=== PATIENT | female | born 1960 | race Caucasian/White ===

== ENCOUNTER 2021-03-08 22:26 | Emergency (ER) | payer BC, OTHER ==
[~2021-03-08] VITALS: Ht 167.6 cm; Wt 105.9 kg
[~2021-03-08 22:26] MED LIST: RIVA15TA PO; RIVA20TA PO
[2021-03-09] MEDS: oxyCODONE/APAP 5-325mg tablet PO ONE (00:27)
[2021-03-09] MEDS: LIDOcaine Viscous 15ml cup MM ONE (00:28)
[2021-03-09] MEDS: normal saline 1000ml 1,000 ML IV ONE (01:24)
[2021-03-09] MEDS: ampicillin/sulbac 3gm/NS 100ml 100 ML IV ONE (01:24)
[2021-03-09 01:35] LABS: BASOPHILS # (AUTO) 0.1 X10'3 (0-0.2); BASOPHILS % (AUTO) 0.9 % (0-1); EOSINOPHILS % (AUTO) 0.1 % (0-6); HEMATOCRIT 40.3 % (35.0-45.0); HEMOGLOBIN 13.8 g/dl (12.0-16.0); LYMPHOCYTES # (AUTO) 0.8 X10'3 (1.1-4.8); LYMPHOCYTES % (AUTO) 9.7 % (21-51); MEAN CORPUSCULAR HGB CONC 34.4 g/dL (33.0-36.5); MEAN CORPUSCULAR VOLUME 90.1 FL (78-98); MEAN PLATELET VOLUME 8.1 FL (7.4-10.4); MONOCYTES # (AUTO) 0.6 X10'3 (0-0.9); MONOCYTES % (AUTO) 6.9 % (2-12); NEUTROPHILS # (AUTO) 6.9 X10'3 (1.8-7.7); NEUTROPHILS % (AUTO) 82.4 % (42-75); PLATELET COUNT 168 X10'3 (140-440); RED BLOOD COUNT 4.47 X10'6 (4.20-5.60); RED CELL DISTRIBUTION WIDTH 13.3 % (11.5-14.5); WHITE BLOOD COUNT 8.4 X10'3 (4.5-11.0)
[2021-03-09 01:37] LABS: ALBUMIN 3.5 G/DL (3.4-5.0); ANION GAP 10 (8-16); BLOOD UREA NITROGEN 12 MG/DL (7-18); BUN/CREATININE RATIO 14.1 (6.6-38.0); CALCIUM 8.8 MG/DL (8.5-10.1); CHLORIDE 101 MMOL/L (99-107); CREATININE 0.85 MG/DL (0.40-0.90); GLUCOSE 146 MG/DL (70-104); SODIUM 138 MMOL/L (135-145); TOTAL CARBON DIOXIDE 27.4 MMOL/L (24-32); eGFR 68 ML/MIN
[2021-03-09] MEDS ORDERED: iohexol 300mg/ml 100ml inj. ONE (01:44)
[2021-03-09] MEDS: morphine 10mg/ml inj. IV ONE (04:46)
--- NOTE | 2021-03-09 04:53 | NUR ---
complains of worsening pain. Dr. Pradhan orders morphine. Patient's pain subsides and she returns to sleep.
[2021-03-09 06:09] VITALS: BP 151/97
--- NOTE | 2021-03-09 07:30 | NUR ---
notified dr watt that pt has recived 6 mg morphine at 0445 this am now c/o tooth pain as per md not to be given here ,pt can get it in [facility].
--- NOTE | 2021-03-09 07:38 | NUR ---
pt resting in bed quietly .
--- NOTE | 2021-03-09 08:31 | NUR ---
spoke to dr watt regarding pt pain as per md he is under the impression that pt is going to [facility] with .as per cari charge nurse pt has bed available up in [facility] ,pt can be d/c from here and get checked in to [facility].
[2021-03-09] MEDS: morphine 4 MG/ML inj SYRINge IV ONE (09:05)
[2021-03-09] MEDS: ondansetron/PF 4mg/2ml inj IV ONE (09:05)
== END 2021-03-09 09:10 | disposition short-term general hospital (02) ==
LOC: ER 22:28
DX: K04.7 Periapical abscess without sinus (principal); Z20.822 Contact with and (suspected) exposure to COVID-19; R68.84 Jaw pain; R20.0 Anesthesia of skin; R13.10 Dysphagia, unspecified; Z72.89 Other problems related to lifestyle; Z79.899 Other long term (current) drug therapy
CPT/HCPCS: 36415; 41800; 70491; 80048; 85025; 87635; 96365; 96375; 96376; 99285; C9803; J2270; J2405; J7030; Q9967; J0295

== ENCOUNTER 2023-02-06 08:44 | Inpatient (IN) | payer SELFPAY ==
[2023-01-28 16:45] LABS: BASOPHILS # (AUTO) 0.1 X10'3 (0-0.2); BASOPHILS % (AUTO) 1.2 % (0-1); EOSINOPHILS # (AUTO) 0.2 X10'3 (0-0.9); EOSINOPHILS % (AUTO) 2.4 % (0-6); LYMPHOCYTES # (AUTO) 2.7 X10'3 (1.1-4.8); LYMPHOCYTES % (AUTO) 37.9 % (21-51); MEAN CORPUSCULAR HEMOGLOBIN 30.5 PG (27.0-31.0); MEAN CORPUSCULAR HGB CONC 33.6 g/dL (33.0-36.5); MEAN CORPUSCULAR VOLUME 90.9 FL (78-98); MEAN PLATELET VOLUME 8.7 FL (7.4-10.4); MONOCYTES # (AUTO) 0.6 X10'3 (0-0.9); MONOCYTES % (AUTO) 8.1 % (2-12); NEUTROPHILS # (AUTO) 3.6 X10'3 (1.8-7.7); NEUTROPHILS % (AUTO) 50.4 % (42-75); PRE OP HEMATOCRIT 43.4 % (35.0-45.0); PRE OP HEMOGLOBIN 14.6 g/dL (12.0-16.0); PRE OP PLATELET COUNT 183 X10'3 (140-440); PRE OP WHITE BLOOD COUNT 7.1 10'3 (4.8-10.8); RED BLOOD COUNT 4.78 X10'6 (4.20-5.60); RED CELL DISTRIBUTION WIDTH 13.4 % (11.5-14.5)
[2023-01-28 17:10] LABS: ALBUMIN 4.1 G/DL (3.4-5.0); ALBUMIN/GLOBULIN RATIO 1.1 (1.1-1.5); ALKALINE PHOSPHATASE 78 IU/L (46-116); BLOOD UREA NITROGEN 24 MG/DL (7-18); BUN/CREATININE RATIO 35.3 (10.0-20.0); CALCIUM 10.5 MG/DL (8.5-10.1); CHLORIDE 103 MMOL/L (99-107); CREATININE 0.68 MG/DL (0.40-0.90); PRE OP ALT 31 U/L (30-65); PRE OP ANION GAP 10 (8-16); PRE OP AST 19 U/L (10-37); PRE OP BILIRUB, TOTAL 0.9 MG/DL (0.0-1.0); PRE OP GLUCOSE 95 MG/DL (70-104); PRE OP POTASSIUM 3.7 MMOL/L (3.4-5.1); PRE OP SODIUM 141 MMOL/L (135-145); TOTAL CARBON DIOXIDE 28.4 MMOL/L (24-32); TOTAL PROTEIN 7.7 G/DL (6.4-8.2); eGFR 88 ML/MIN
[2023-02-06] VITALS (17 sets, daily range): BP systolic 135–170; BP diastolic 77–98; PULSE 66–89; RESP 14–22; TEMP 97.3–98.4; O2SAT 95–98
[~2023-02-06] VITALS: Ht 167.6 cm; Wt 98.4 kg
[~2023-02-06 08:44] MED LIST changes: +ACET-890 PO; -RIVA15TA PO; -RIVA20TA PO; +cefazolin 2gm/D5W 100mL 100 ML IV ONE; +famotidine 20mg tablet PO ONE; +ringers solution, lacted 1,000 ML IV SCH; +vancomycin 1,500 MG in NS 300ml IV soln IV ONE
[2023-02-06] MEDS ORDERED: ondansetron/PF 4mg/2ml inj IV PRN ×2 (10:45→16:40)
[2023-02-06] MEDS ORDERED: ringers solution, lacted 1,000 ML IV SCH (10:45)
[2023-02-06] MEDS ORDERED: fentaNYL/PF 50MCG/1 ML 2ML syringe IV PRN (10:45)
[2023-02-06] MEDS ORDERED: morphine 2 MG/ML inj. syringe IV PRN (10:45)
[2023-02-06] MEDS ORDERED: labetalol 20mg/4ml (5mg/ml) syringe IV PRN (10:45)
[2023-02-06] MEDS ORDERED: morphine 4 MG/ML inj SYRINge IV PRN (10:45)
[2023-02-06] MEDS ORDERED: hydrALAZINE 20mg/ml inj. IV PRN (10:45)
[2023-02-06] MEDS ORDERED: ASPI81TA52 PO (11:14)
[2023-02-06] MEDS ORDERED: vancomycin 1,000mg inj ONE (12:56)
[2023-02-06] MEDS ORDERED: tetracaine 1% (10mg/ml) pres. free inj. ONE (13:11)
[2023-02-06] MEDS ORDERED: MIDAZolam 1mg/ml 10ml vial ONE (13:13)
[2023-02-06] MEDS ORDERED: fentaNYL/PF 50MCG/1 ML 2ML syringe ONE ×2 (13:41→16:11)
[2023-02-06] MEDS ORDERED: LIDOcaine 2% (20mg/ml) 5ml vial ONE (13:45)
[2023-02-06] MEDS ORDERED: tranexamic acid inj. 1,000 MG in normal saline IV soln 100ML IV ONE (13:45)
[2023-02-06] MEDS ORDERED: acetaminophen 1,000mg/100ml IV 100 ML IV ONE (14:35)
[2023-02-06] MEDS ORDERED: MIDAZolam 1 MG/ML 5ML VIAL ONE ×2 (14:46→14:47)
[2023-02-06] MEDS ORDERED: propofol inj 20 ML IV ONE ×3 (16:14)
--- NOTE | 2023-02-06 16:30 | NUR ---
Received from OR via , accompanied by Anesthesiologist and report given by Anesthesiolgist. PATIENT A&OX4, C/O OF PAIN SEE EMAR, V/S STABLE, SCD ON, 20G RUE, DRESSING TO LEFT HIP CDI WITH ABDUCTOR WEDGE ON CDI , F/C DRAINING CLEAR YELLOW URINE, SENSATIONS T12
[2023-02-06] MEDS ORDERED: naloxone 0.4 mg/ml inj IV PRN (16:40)
[2023-02-06] MEDS ORDERED: diphenhydrAMINE 25mg capsule PO PRN ×2 (16:40)
[2023-02-06] MEDS ORDERED: magnesium hydroxide 30ml (MOM) UD suspension PO PRN (16:40)
[2023-02-06] MEDS ORDERED: HYDROmorphone inj. 0.5 MG/0.5 ML DISP.SYRIN IV PRN (16:40)
[2023-02-06] MEDS ORDERED: acetaminophen 325mg tablet PO PRN (16:40)
[2023-02-06] MEDS ORDERED: bisacodyl 10mg suppository rectal RC PRN (16:40)
[2023-02-06] MEDS: fentaNYL/PF 50MCG/1 ML 2ML syringe IV PRN ×2 (16:48→16:59)
--- NOTE | 2023-02-06 17:20 | NUR ---
PATIENT A&OX4, C/O OF PAIN SEE EMAR, V/S STABLE, SCD ON, 20G RUE, DRESSING TO LEFT HIP CDI WITH ABDUCTOR WEDGE ON CDI , F/C DRAINING CLEAR YELLOW URINE, SENSATIONS L-1. PATIENT TAKEN TO FLOOR WITH ALL BELONGINGS AND HOOKED UP TO MONITORS IN ROOM AND REPORT GIVEN TO RN WHO HAS TAKEN OVER PATIENT CARE.
[2023-02-06] MEDS: potassium Cl 20mEq in NS 1,000 ML IV SCH (17:37)
[2023-02-06] MEDS: HYDROmorphone 1 mg/ml syringe IV PRN ×2 (17:38→22:11)
--- NOTE | 2023-02-06 17:47 | NUR ---
Received patient to room 4011B in bed accompanied by ETHAN Hernandez and spouse. Patient whimpering and tearful c/o pain to left hip. Dressing to left hip with quarter size shadowing circled. Abductor wedge in place. Huber catheter draining to gravity with clear, pale yellow urine. Belongings placed at bedside table. Cold powder pack placed to left hip. Post op vitals initiated. Call light placed within patient's reach, bed low and locked.
--- NOTE | 2023-02-06 18:10 | NUR ---
Unable to do 2RN skin assessment due to patient being too painful
--- NOTE | 2023-02-06 18:30 | NUR ---
Problems reprioritized. Patient report given, questions answered & plan of care reviewed with ETHAN Lester.
--- NOTE | 2023-02-06 18:35 | NUR ---
Patient in room ORTHO 4011. I have received report from EMILIO LONG and had the opportunity to ask questions and assume patient care.
[2023-02-06] MEDS ORDERED: tranexamic acid inj. 980 MG in normal saline 100ml IV soln 100 ML IV ONE (19:30)
[2023-02-06] MEDS ORDERED: vancomycin/NS 1 GM ADD-VANTAGE 250 ML IV SCH (20:00)
[2023-02-06] MEDS: oxyCODONE IR 5mg (immed. release) tablet PO PRN (20:13)
[2023-02-06] MEDS: acetaminophen 325mg tablet PO SCH (20:22)
[2023-02-06] MEDS: gabapentin 300mg capsule PO SCH (20:22)
[2023-02-06] MEDS: sennosides 8.6mg tablet PO SCH (20:28)
[2023-02-07] MEDS: potassium Cl 20mEq in NS 1,000 ML IV SCH ×3 (00:40→14:57)
[2023-02-07] MEDS: oxyCODONE IR 5mg (immed. release) tablet PO PRN ×4 (01:09→17:30)
[2023-02-07] MEDS: ceFAZolin/D5W- 1GM premix 50 ML IV SCH ×2 (01:10→08:02)
[2023-02-07] MEDS: acetaminophen 325mg tablet PO SCH ×4 (02:00→20:32)
[2023-02-07 06:00] VITALS: BP 135/78; PULSE 104; RESP 17; TEMP 97.9; O2SAT 97
--- NOTE | 2023-02-07 06:24 | NUR ---
Problems reprioritized. Patient report given, questions answered & plan of care reviewed with JUAN PABLO LONG.
--- NOTE | 2023-02-07 06:26 | NUR ---
Patient in room ORTHO 4011. I have received report from Kaykay Mccracken and had the opportunity to ask questions and assume patient care.
[2023-02-07 06:56] LABS: BASOPHILS # (AUTO) 0.1 X10'3 (0-0.2); BASOPHILS % (AUTO) 0.8 % (0-1); EOSINOPHILS % (AUTO) 0.5 % (0-6); HEMATOCRIT 37.4 % (35.0-45.0); HEMOGLOBIN 12.5 g/dl (12.0-16.0); LYMPHOCYTES # (AUTO) 1.6 X10'3 (1.1-4.8); LYMPHOCYTES % (AUTO) 18.7 % (21-51); MEAN CORPUSCULAR HEMOGLOBIN 30.5 PG (27.0-31.0); MEAN CORPUSCULAR HGB CONC 33.5 g/dL (33.0-36.5); MEAN CORPUSCULAR VOLUME 90.9 FL (78-98); MEAN PLATELET VOLUME 8.6 FL (7.4-10.4); MONOCYTES # (AUTO) 0.6 X10'3 (0-0.9); MONOCYTES % (AUTO) 7.6 % (2-12); NEUTROPHILS % (AUTO) 72.4 % (42-75); PLATELET COUNT 154 X10'3 (140-440); RED BLOOD COUNT 4.11 X10'6 (4.20-5.60); WHITE BLOOD COUNT 8.3 X10'3 (4.5-11.0)
[2023-02-07] MEDS: gabapentin 300mg capsule PO SCH ×3 (08:02→20:32)
[2023-02-07] MEDS: enoxaparin 40mg/0.4ml syringe SQ SCH (08:03)
[2023-02-07 10:00] VITALS: BP 132/89; PULSE 107; RESP 18; TEMP 98.8; O2SAT 95
--- NOTE | 2023-02-07 10:14 | NUR ---
Joint surgery consult: Pt s/p L hip surgery this admit per EMR. Pt seen by RD at bedside for written/verbal high protein diet ed w/ RD contact information provided. RD encouraged pt to contact dietitian's office if further nutrition questions/concerns. Pt requests whole milk TIDWM dislikes lower fat milks-dietary notified. Addendum: 02/07/23 at [address] Amended: Links added.
--- NOTE | 2023-02-07 18:32 | NUR ---
Problems reprioritized. Patient report given, questions answered & plan of care reviewed with Kaykay Mccracken.
[2023-02-07 20:00] VITALS: RESP 18; O2SAT 96
[2023-02-07] MEDS: celeCOXIB 100mg capsule PO SCH (20:32)
[2023-02-07] MEDS: sennosides 8.6mg tablet PO SCH (20:33)
[2023-02-08] MEDS: potassium Cl 20mEq in NS 1,000 ML IV SCH ×2 (01:16→08:40)
[2023-02-08] MEDS: oxyCODONE IR 5mg (immed. release) tablet PO PRN ×3 (01:22→17:09)
[2023-02-08] MEDS: acetaminophen 325mg tablet PO SCH ×3 (01:38→13:14)
[2023-02-08 06:00] VITALS: BP 115/72; PULSE 97; RESP 16; TEMP 96.8; O2SAT 97
--- NOTE | 2023-02-08 06:49 | NUR ---
Problems reprioritized. Patient report given, questions answered & plan of care reviewed with EDDIE LONG.
--- NOTE | 2023-02-08 06:54 | NUR ---
Patient in room ORTHO 4011. I have received report from Trevon and had the opportunity to ask questions and assume patient care.
[2023-02-08 07:45] VITALS: RESP 16; O2SAT 97
[2023-02-08] MEDS: celeCOXIB 100mg capsule PO SCH ×2 (09:01→20:33)
[2023-02-08] MEDS: gabapentin 300mg capsule PO SCH ×3 (09:01→20:33)
[2023-02-08] MEDS: enoxaparin 40mg/0.4ml syringe SQ SCH (09:02)
[2023-02-08 10:00] VITALS: BP 129/75; PULSE 105; RESP 20; TEMP 98.8; O2SAT 97
[2023-02-08] MEDS ORDERED: acetaminophen 325mg tablet PO PRN (16:40)
[2023-02-08 18:00] VITALS: BP 147/79; PULSE 104; RESP 16; TEMP 97.6; O2SAT 94
[2023-02-08] MEDS: sennosides 8.6mg tablet PO SCH (20:33)
[2023-02-08 20:55] VITALS: RESP 16; O2SAT 96
[2023-02-08 22:00] VITALS: BP 121/75; PULSE 86; RESP 18; TEMP 99.6; O2SAT 96
--- NOTE | 2023-02-09 00:01 | NUR ---
Handed off patient care to UMU Zazueta who will assume care at 00:00
[2023-02-09] MEDS: oxyCODONE IR 5mg (immed. release) tablet PO PRN ×3 (05:56→20:14)
[2023-02-09 06:00] VITALS: BP 110/79; PULSE 129; RESP 18; TEMP 99.1; O2SAT 94
--- NOTE | 2023-02-09 06:53 | NUR ---
Problems reprioritized. Patient report given, questions answered & plan of care reviewed with ETHAN King.
--- NOTE | 2023-02-09 06:54 | NUR ---
Patient in room ORTHO 4011. I have received report from REYNALDO LONG and had the opportunity to ask questions and assume patient care.
[2023-02-09] MEDS: celeCOXIB 100mg capsule PO SCH ×2 (08:48→20:12)
[2023-02-09] MEDS: enoxaparin 40mg/0.4ml syringe SQ SCH (08:49)
[2023-02-09] MEDS: gabapentin 300mg capsule PO SCH ×3 (08:49→20:12)
[2023-02-09 10:00] VITALS: BP 120/80; PULSE 103; RESP 16; TEMP 98.4; O2SAT 93
[2023-02-09 17:16] LABS: BASOPHILS # (AUTO) 0.1 X10'3 (0-0.2); BASOPHILS % (AUTO) 1.1 % (0-1); EOSINOPHILS # (AUTO) 0.3 X10'3 (0-0.9); EOSINOPHILS % (AUTO) 2.9 % (0-6); HEMATOCRIT 33.1 % (35.0-45.0); LYMPHOCYTES # (AUTO) 2.4 X10'3 (1.1-4.8); MEAN CORPUSCULAR HEMOGLOBIN 30.1 PG (27.0-31.0); MEAN CORPUSCULAR HGB CONC 33.1 g/dL (33.0-36.5); MEAN CORPUSCULAR VOLUME 90.8 FL (78-98); MEAN PLATELET VOLUME 8.3 FL (7.4-10.4); MONOCYTES # (AUTO) 0.8 X10'3 (0-0.9); MONOCYTES % (AUTO) 8.3 % (2-12); NEUTROPHILS % (AUTO) 62.7 % (42-75); PLATELET COUNT 191 X10'3 (140-440); RED BLOOD COUNT 3.64 X10'6 (4.20-5.60); WHITE BLOOD COUNT 9.6 X10'3 (4.5-11.0)
[2023-02-09 18:00] VITALS: BP 123/87; PULSE 111; RESP 16; TEMP 98.4; O2SAT 94
--- NOTE | 2023-02-09 18:24 | NUR ---
patients left leg very swollen and tight. painful to walk. Call made to Dr morton. Orders received for VL studies on left leg. CBC sent. patient was 99.1 febrile this am 0600hrs. Retook 98.4 1000hrs. Resting at time of report. report given to Daria LONG
--- NOTE | 2023-02-09 18:30 | NUR ---
Patient in room ORTHO 4011. I have received report from Christine LONG and had the opportunity to ask questions and assume patient care.
[2023-02-09 19:40] VITALS: RESP 16; O2SAT 94
[2023-02-09] MEDS: sennosides 8.6mg tablet PO SCH (20:13)
[2023-02-09 22:00] VITALS: BP 142/75; PULSE 101; RESP 18; TEMP 97.9; O2SAT 92
--- NOTE | 2023-02-09 22:00 | NUR ---
has been called regarding Venous US study result.Pt. had a non-occlusive thrombus in the Left mid.calf.Pt. is on Lovenox 40 mg daily and Cleocin 300 mg q 8 p.o. was on called ,he was notified also. Addendum: 02/10/23 at 0650 by Magda Pedroza RN I did not received a new order for her.
[2023-02-10] MEDS: clindamycin 150mg capsule PO SCH ×4 (00:14→17:22)
[2023-02-10] MEDS: oxyCODONE IR 5mg (immed. release) tablet PO PRN ×2 (04:29→14:20)
[2023-02-10 06:00] VITALS: BP 126/76; PULSE 88; RESP 18; TEMP 97; O2SAT 92
--- NOTE | 2023-02-10 06:40 | NUR ---
Reported off to Christine LONG
[2023-02-10] MEDS ORDERED: enoxaparin 40mg/0.4ml syringe SUBCUT SCH (08:00)
[2023-02-10] MEDS: gabapentin 300mg capsule PO SCH ×3 (08:35→20:24)
[2023-02-10] MEDS: celeCOXIB 100mg capsule PO SCH ×2 (08:35→20:24)
--- NOTE | 2023-02-10 08:41 | NUR ---
Medication administration performed by student under my direct supervision.
[2023-02-10 10:00] VITALS: BP 135/83; PULSE 93; RESP 16; TEMP 97.9; O2SAT 94
[2023-02-10] MEDS ORDERED: apixaban 5mg tablet PO ONE (10:15)
[2023-02-10 10:56] LABS: D-DIMER 1.41 MG/L FEU (0-0.50); INR 0.9 INR; PROTHROMBIN TIME 10.1 SECONDS (9.0-12.0)
--- NOTE | 2023-02-10 15:09 | NUR ---
MEDICATION administered under direct supervision of the instructor
--- NOTE | 2023-02-10 16:49 | NUR ---
student documentation reviewed by instructor
[2023-02-10 18:00] VITALS: BP 128/76; PULSE 99; RESP 16; TEMP 97.6; O2SAT 94
[2023-02-10] MEDS: sennosides 8.6mg tablet PO SCH (20:24)
[2023-02-11] MEDS: clindamycin 150mg capsule PO SCH ×2 (01:42→09:31)
[2023-02-11] MEDS: oxyCODONE IR 5mg (immed. release) tablet PO PRN (04:59)
--- NOTE | 2023-02-11 05:02 | NUR ---
patients dressing to left hip changedx2 , medium amount of yellowish drainage. Medicated for pain x2 with good effect.
[2023-02-11 06:00] VITALS: BP 132/81; PULSE 94; RESP 16; TEMP 98.3; O2SAT 98
--- NOTE | 2023-02-11 07:05 | NUR ---
Problems reprioritized. Patient report given, questions answered & plan of care reviewed with Raeann LONG.
[2023-02-11 08:59] VITALS: RESP 20; O2SAT 96
[2023-02-11] MEDS: celeCOXIB 100mg capsule PO SCH (09:30)
[2023-02-11] MEDS: gabapentin 300mg capsule PO SCH (09:31)
[2023-02-11 10:00] VITALS: BP 137/79; PULSE 111; RESP 16; TEMP 97.5; O2SAT 96
[2023-02-11] MEDS ORDERED: ACET-1008 PO (10:39)
--- NOTE | 2023-02-11 10:39 | NUR ---
Initial: Pt admit DX Pt s/p L hip osteoarthritis and DVT s/p L hip surgery 02/06 per EMR. Pt PO ~82% avg regular diet meeting estimated needs; receiving whole milk TIDWM per request. LBM 02/08 per EMR. No nutrition interventions at this time. Will continue to follow. Rec: 1. continue regular diet; whole milk TIDWM per pt request 2. routine bowel care 3. weekly wt Addendum: 02/11/23 at [address] Amended: Links added.
[2023-02-11 10:45] LABS: BASOPHILS % (AUTO) 0.3 % (0-1); EOSINOPHILS # (AUTO) 0.4 X10'3 (0-0.9); EOSINOPHILS % (AUTO) 5.1 % (0-6); HEMATOCRIT 32.5 % (35.0-45.0); LYMPHOCYTES # (AUTO) 2.2 X10'3 (1.1-4.8); LYMPHOCYTES % (AUTO) 27.9 % (21-51); MEAN CORPUSCULAR HEMOGLOBIN 30.8 PG (27.0-31.0); MEAN CORPUSCULAR HGB CONC 33.8 g/dL (33.0-36.5); MEAN CORPUSCULAR VOLUME 91.2 FL (78-98); MEAN PLATELET VOLUME 8.3 FL (7.4-10.4); MONOCYTES # (AUTO) 0.7 X10'3 (0-0.9); MONOCYTES % (AUTO) 9.5 % (2-12); NEUTROPHILS # (AUTO) 4.5 X10'3 (1.8-7.7); NEUTROPHILS % (AUTO) 57.2 % (42-75); PLATELET COUNT 259 X10'3 (140-440); RED BLOOD COUNT 3.56 X10'6 (4.20-5.60); RED CELL DISTRIBUTION WIDTH 13.4 % (11.5-14.5); WHITE BLOOD COUNT 7.8 X10'3 (4.5-11.0)
[2023-02-11 10:58] LABS: ALANINE AMINOTRANSFERASE 22 U/L (12-78); ALBUMIN 2.5 G/DL (3.4-5.0); ALBUMIN/GLOBULIN RATIO 0.6 (1.1-1.5); ALKALINE PHOSPHATASE 89 IU/L (46-116); ANION GAP 7 (8-16); ASPARTATE AMINO TRANSFERASE 14 U/L (10-37); BILIRUBIN,TOTAL 1.2 MG/DL (0.1-1.0); BLOOD UREA NITROGEN 9 MG/DL (7-18); BUN/CREATININE RATIO 13.8 (10.0-20.0); CALCIUM 9.2 MG/DL (8.5-10.1); CHLORIDE 102 MMOL/L (99-107); CREATININE 0.65 MG/DL (0.40-0.90); GLUCOSE 116 MG/DL (70-104); POTASSIUM 3.8 MMOL/L (3.5-5.1); SODIUM 138 MMOL/L (135-145); TOTAL PROTEIN 6.7 G/DL (6.4-8.2); eCRCL 84 ML/MIN; eGFR > 90 ML/MIN
[2023-02-11] MEDS ORDERED: APIX5TAB3 PO (12:36)
[2023-02-11] MEDS ORDERED: CLIN-91 PO (18:49)
== END 2023-02-11 13:14 | disposition home or self-care (01) | DRG 470 ==
LOC: PAS IN 08:44 → ORTHO 4S 17:28
PROVIDERS: ADMIT Orthopaedic Surgery; ATTEND Orthopaedic Surgery
PROC: 0SRB0JA Replacement of Left Hip Joint with Synthetic Substitute, Uncemented, Open Approach (ICD-10-PCS; principal; 2023-02-06 13:21)
DX: M16.12 Unilateral primary osteoarthritis, left hip (principal); I82.492 Acute embolism and thrombosis of other specified deep vein of left lower extremity; Z79.82 Long term (current) use of aspirin; Z79.899 Other long term (current) drug therapy; Z86.718 Personal history of other venous thrombosis and embolism
CPT/HCPCS: Z7506; Z7508; 36415; 72170; 80053; 82948; 83891; 84145; 85025; 85300; 85301; 85303; 85305; 85306; 85379; 85610; 86146; 86147; 86885; 86900; 86901; 87081; 93005; 93971; 97110; 97116; 97162; 97530; A4215; A4615; A4618; A6253; A6258; A6402; A6449; A7000; C1758; C1776; G0378; J0131; J0690; J1170; J1650; J2250; J2704; J3010; J3370; J3480; J3490; J7120; Q0163